=== PATIENT | female | born 1995 | race Two or more races ===

== ENCOUNTER → 2024-12-28 | Outpatient (CLI) | payer MEDICAID, SELFPAY ==
--- NOTE | 2024-12-28 13:54 | XR_ITS ---
Examination: Knee, left , 3 views Technique: Knee AP, lateral, oblique 3 views Date and time of exam: December 28, 2024, 1413 hours INDICATIONS: Patient fell 7 months ago with injury to the knee, knee pain FINDINGS: No fracture or dislocation Small knee effusion Mild to moderate osteoarthritis medial joint space and patellofemoral joint space IMPRESSION: No acute fracture Mild to moderate osteoarthritis as above
== END | disposition home or self-care (01) ==
LOC: CDIM 13:46
PROVIDERS: PCP Physician Assistant; Referring Provider Physician Assistant; Visit Provider Physician Assistant
DX: M17.12 Unilateral primary osteoarthritis, left knee (principal); S89.92XS Unspecified injury of left lower leg, sequela; W19.XXXS Unspecified fall, sequela
CPT/HCPCS: 73562